=== PATIENT | male | born 2000 | race Caucasian/White ===

== ENCOUNTER 2022-01-23 16:09 | Outpatient (CLI) | payer OTHER ==
[2022-01-23 16:50] LABS: #Basophils 0.1 10x3/uL (0.0-0.2); #Eosinphils 0.2 10x3/uL (0.0-0.5); #Neutrophils 5.3 10x3/uL (1.5-8.4); %Basophils 0.7 % (0.0-2.0); %Eosinophils 2.2 % (0.0-6.0); %Lymphocytes 34.6 % (18.0-47.0); %Neutrophils 52.2 % (40.0-75.0); Hemoglobin 16.7 g/dL (13.5-17.5); Mean Corpuscular HGB CONC 36.7 g/dL (32.0-36.0); Mean Corpuscular Hemoglobin 30.4 pg (27.0-33.0); Mean Corpuscular Volume 82.7 fl (81.2-95.1); Mean Platelet Volume 9.4 fl (7.4-10.4); Platelet Count 269 10x3/uL (150-450); RBC Distribution Width 11.6 % (11.5-14.5); White Blood Cell (WBC) Count 10.1 10x3/uL (3.5-10.5)
[2022-01-24 00:57] LABS: SARS-CoV-2 PCR by NAA Not Detected (NotDetected)
== END 2022-01-23 16:10 | disposition home or self-care (01) ==
LOC: LABBT 16:09
PROVIDERS: ATTEND Orthopaedic Surgery
DX: Z01.812 Encounter for preprocedural laboratory examination (principal); S83.512A Sprain of anterior cruciate ligament of left knee, initial encounter; Z20.822 Contact with and (suspected) exposure to COVID-19
CPT/HCPCS: 85025; U0003; U0005

== ENCOUNTER 2022-01-26 06:10 | Observation (INO) | payer OTHER ==
[2022-01-26] MEDS ORDERED: Ketamine 50 MG/ML (10ML VIAL) ONE (06:27)
[2022-01-26] MEDS ORDERED: Vancomycin 1 GM/200 ML BAG ONE (06:27)
[2022-01-26] MEDS ORDERED: Sodium Chloride 0.9% 100 ML ONE (06:28)
[2022-01-26] MEDS ORDERED: Lidocaine 1% MPF 2 ML VIAL ONE (06:28)
[2022-01-26] MEDS ORDERED: CEFAZOLIN 2 GM VIAL ONE (06:28)
[2022-01-26] MEDS ORDERED: HYDROmorphone 2 MG/ML VIAL ONE (06:36)
[2022-01-26] MEDS ORDERED: Midazolam HCl 2 mg/2 ml Vial ONE (06:48)
[2022-01-26] MEDS ORDERED: Fentanyl 100 MCG/2 ML VIAL ONE ×2 (06:48→09:49)
[2022-01-26] MEDS ORDERED: Lidocaine 1% (PF) 30 ML VIAL ONE (06:49)
[2022-01-26] MEDS ORDERED: Esmolol 100 MG/10 ML VIAL ONE (07:46)
[2022-01-26] MEDS ORDERED: PROPOFOL 200 MG/20 ML VIAL ONE (07:46)
[2022-01-26] MEDS ORDERED: Bupivacaine HCl 0.5%/Epinephrine 1:200,000/PF 30 ml Vial ONE (07:46)
[2022-01-26] MEDS ORDERED: Lidocaine 1% PF 5 ML VIAL ONE (07:46)
[2022-01-26] MEDS ORDERED: Dexamethasone 20 MG/5 ML VIAL ONE (07:46)
[2022-01-26] MEDS ORDERED: diphenhydrAMINE 50 MG/ML VIAL ONE (07:46)
[2022-01-26] MEDS ORDERED: Ondansetron PF 4 MG/2 ML Vial ONE (07:46)
[2022-01-26] MEDS ORDERED: PHENYLEPHRINE-NS 100 MCG/ML 10 ML SYRINGE ONE (07:46)
[2022-01-26] MEDS ORDERED: Ondansetron PF 4 MG/2 ML Vial IVP PRN (07:55)
[2022-01-26] MEDS ORDERED: Acetaminophen 325 MG TAB PO PRN (07:55)
[2022-01-26] MEDS ORDERED: diphenhydrAMINE 50 MG CAP PO PRN (07:55)
[2022-01-26] MEDS ORDERED: Bisacodyl 10 MG SUPP PR PRN (07:55)
[2022-01-26] MEDS ORDERED: HYDROcodone/Acetaminophen 7.5/325 mg Tablet PO PRN (07:55)
[2022-01-26] MEDS ORDERED: Methocarbamol 500 MG TAB PO PRN (07:55)
[2022-01-26] MEDS ORDERED: traMADol HCl 50 MG TAB PO PRN (07:55)
[2022-01-26] MEDS ORDERED: Milk Of Magnesia 30 ML UDCUP PO PRN (07:55)
[2022-01-26] MEDS ORDERED: Meperidine HCl/PF 25 MG/ML VIAL ONE (09:43)
[2022-01-26] MEDS: Ketorolac Tromethamine 30 MG/ML VIAL IVP SCH ×3 (11:36→23:15)
[2022-01-26] MEDS: HYDROcodone/Acetaminophen 7.5/325 mg Tablet PO PRN ×2 (11:37→20:58)
[2022-01-26] MEDS: Dextrose 5 %-0.45 % NaCl 1,000 ML IV SCH ×3 (15:24→19:48)
[2022-01-26] MEDS: Famotidine 20 MG TAB PO SCH ×2 (15:25→20:58)
[2022-01-26] MEDS: CEFAZOLIN 2 GM in Sodium Chloride 0.9% 100 ML IVPB SCH ×2 (15:28→23:14)
[2022-01-26 19:39] VITALS: BMI 25.7
[2022-01-27] MEDS: Dextrose 5 %-0.45 % NaCl 1,000 ML IV SCH (03:46)
[2022-01-27] MEDS: Ketorolac Tromethamine 30 MG/ML VIAL IVP SCH ×2 (06:29→12:37)
[2022-01-27] MEDS: Famotidine 20 MG TAB PO SCH (10:37)
[2022-01-27] MEDS: HYDROcodone/Acetaminophen 7.5/325 mg Tablet PO PRN (10:40)
[2022-01-27 11:42] VITALS: TEMP 98.1
[2022-01-27 15:50] VITALS: BP 119/67
== END 2022-01-27 14:41 | disposition home or self-care (01) ==
LOC: SDC 06:10 → SURG B 07:58
PROVIDERS: ADMIT Orthopaedic Surgery; ATTEND Orthopaedic Surgery
PROC: 0MRP47Z Replacement of Left Knee Bursa and Ligament with Autologous Tissue Substitute, Percutaneous Endoscopic Approach (ICD-10-PCS; principal; 2022-01-26)
DX: S83.512A Sprain of anterior cruciate ligament of left knee, initial encounter (principal); W50.0XXA Accidental hit or strike by another person, initial encounter; Y93.65 Activity, lacrosse and field hockey
CPT/HCPCS: 96374; 96375; 96376; C1713; G0378; J1100; J1170; J1200; J1885; J2001; J2175; J2250; J2405; J2704; J3010; J3370; J3490; J7042